=== PATIENT | male | born 1960 | race African-American/Black ===

== ENCOUNTER 2017-09-05 05:07 | Day surgery (SDC) | payer OTHER ==
[2017-09-04 16:29] VITALS: BMI 27.6
--- NOTE | 2017-09-05 13:00 | HP ---
History & Physical Update - History History: No Change - Physical Physical: No Change - Assessment Assessment: No Change - Plan Plan: No Change
[2017-09-05] MEDS ORDERED: LIDOCAINE 1%/EPI 1:100000 (20 ML MULTI DOSE VIAL) ONE (14:33)
[2017-09-05] MEDS ORDERED: BUPIVACAINE HCL/PF 0.5% (5MG/ML) 10 ML VIAL ONE (14:33)
[2017-09-05] MEDS ORDERED: PROPOFOL 20 ML ONE ×2 (14:44→14:45)
[2017-09-05] MEDS ORDERED: MIDAZOLAM HCL 2 MG/2 ML SINGLE DOSE VIAL ONE (14:44)
[2017-09-05] MEDS ORDERED: LIDOCAINE HCL/PF 2% SDV 5ML VIAL ONE (14:45)
[2017-09-05] MEDS ORDERED: LEVOFLOXACIN 500 MG IVPB 500 MG/100 ML BAG IVPB ONE (15:04)
[2017-09-05] MEDS ORDERED: LEVOFLOXACIN 500 MG PREMIX BAG IVPB ONE (15:05)
[2017-09-05] MEDS ORDERED: METRONIDAZOLE 500 MG PREMIXED 500 MG/100 ML MG IVPB ONE (15:06)
[2017-09-05] MEDS ORDERED: DEXAMETHASONE SOD PHOSPHATE 4 MG/1 ML VIAL ONE (15:08)
[2017-09-05] MEDS ORDERED: KETOROLAC TROMETHAMINE 30 MG/1 ML VIAL ONE (15:34)
[2017-09-05] MEDS ORDERED: ONDANSETRON 4 MG/2 ML VIAL IVPUSH PRN (15:52)
[2017-09-05] MEDS ORDERED: PROMETHAZINE HCL 25 MG/1 ML VIAL IVPUSH PRN (15:52)
[2017-09-05] MEDS ORDERED: LACTATED RINGERS SOLUTION 1,000 ML IV SCH (16:00)
--- NOTE | 2017-09-05 16:11 | OP ---
Operative Note - Note: Operative Date: 09/05/17 Pre-Operative Diagnosis: Anal fistula Operation: Proctosigmoidoscopy with anal dilation , anal fistulectomy, with placement of seton. First stage. Findings: Anal fistula at 3 o'Clock position , transsphincteric , through the external sphincter. Fistula excised upto the external sphincter , and a seton with no. 5 merselene placed around the external sphincter. Post-Operative Diagnosis: Other (High anal fistula at 3 O' Clock position , transsphincteric.) Surgeon: Alan Pablo Anesthesiologist/LEAD PRINCIPAL TECHNICAL ARCHITECT: William Claire Anesthesia: General Specimens Removed: Anal fistula. Estimated Blood Loss (mls): 10 Operative Report Dictated: Yes
[2017-09-05 17:31] VITALS: BP 148/86; PULSE 70
[2017-09-05 17:55] VITALS: TEMP 99.2
--- NOTE | 2017-09-06 15:21 | OP ---
DATE OF OPERATION: 09/05/2017 PREOPERATIVE DIAGNOSIS: Anal fistula for 6 months at the 3 o'clock position from the anal verge. POSTOPERATIVE DIAGNOSIS: Non-sphincteric anal fistula. OPERATIVE PROCEDURES: Proctosigmoidoscopy with anal dilation, anal fistulectomy with the placement of seton, first-stage procedure. SURGEON: Avila Pablo MD ANESTHESIA: General. ANESTHESIOLOGIST: William Claire MD OPERATIVE DESCRIPTION: This 57-year-old man had a large, recurrent perianal abscess with drainage anal fistula. The patient was brought in for proctosigmoidoscopy with anal dilation. The patient had a Fleet enema for the rectum. He was given antibiotics of Levaquin and Flagyl. He was placed in lithotomy position. The perineum and the anal canal were washed out with Betadine. A timeout was called. Proctosigmoidoscopy with anal dilation was performed with a rigid sigmoidoscope up to 20 cm. The findings were normal. A probe was then introduced through the external opening at 3 o'clock position about 4 cm from the anal verge. We entered the junction of the rectum and the anal canal in the 3 o'clock position. This was a direct tract. The fistula probe was placed within the anal tract and an elliptical incision was made around the external opening about 2 cm from the external opening. This was carried down towards the internal opening, excising the skin and subcutaneous fat and the anal tract. This was carried all the way down to the external sphincter where the tract seemed to go to the external sphincter. It was therefore then decided to place a seton around the external sphincter. A number 5 Mersilene suture was used. This was tied to the anal probe and passed out the external sphincter. The Mersilene suture was tied at the seton. Hemostasis was satisfactory. The excised tract, along with skin, and the superficial area was excised and sent to Pathology. Hemostasis was satisfactory. Next, 0.5% Marcaine was injected into the external sphincter and around the wound. The wound was packed with 2-inch iodoform gauze and a pack. Estimated blood loss was 5 to 10 mL. The patient tolerated the procedure well, was extubated, and sent to the recovery room in satisfactory and stable condition. Alex [id number]
--- NOTE | 2017-09-10 15:11 | PATH ---
Surgical Pathology Report Patient Name: MICHAEL INGRAM [facility]. Rec. #: [id number] /Age/Gender: 1960 (Age: 57) / M Account: [id number] Location: [facility] SUR[facility] Taken: 09/05/2017 Received: 09/09/2017 Reported: 09/10/2017 Physicians: Avila Pablo M.D. Specimen(s) Received ANAL FISTULLA Clinical History None given Final Diagnosis ANUS, FISTULA, EXCISION: SKIN AND UNDERLYING SOFT TISSUE WITH CHRONIC INFLAMMATION AND GIANT CELL REACTION CONSISTENT WITH FISTULA. Electronically Signed Kellen Pelayo M.D. Gross Description Received in formalin labeled "anal fistula," is a 3.5 x 2.2 cm brown, irregular, unoriented portion of skin excised to a depth of 1.8 cm. The epidermal surface is grossly unremarkable. Sectioning reveals focally hemorrhagic fibrous tissue. Burglar Alarm Inspector sections are submitted in 3 cassettes. /09/09/2017 saudi09/09/2017
== END 2017-09-05 17:31 | disposition home or self-care (01) ==
LOC: JASU-SURG 05:07
PROVIDERS: ATTEND Specialist
PROC: 0D7Q8ZZ Dilation of Anus, Via Natural or Artificial Opening Endoscopic (ICD-10-PCS; 2017-09-05)
PROC: 0DBQ0ZZ Excision of Anus, Open Approach (ICD-10-PCS; principal; 2017-09-05 14:00)
DX: K60.3 Anal fistula (principal)
CPT/HCPCS: 88304-TC; 94760

== ENCOUNTER 2017-10-03 09:49 | Day surgery (SDC) | payer OTHER ==
[2017-10-02 09:31] VITALS: BMI 27.6
--- NOTE | 2017-10-03 10:15 | HP ---
History & Physical Update - History History: No Change - Physical Physical: No Change - Assessment Assessment: No Change - Plan Plan: No Change (Anal fistulectomy done. Plan: Change os seton.)
[2017-10-03] MEDS ORDERED: KETOROLAC TROMETHAMINE 30 MG/1 ML VIAL ONE (10:42)
[2017-10-03] MEDS ORDERED: LIDOCAINE HCL/PF 2% SDV 5ML VIAL ONE (10:42)
[2017-10-03] MEDS ORDERED: DEXAMETHASONE SOD PHOSPHATE 4 MG/1 ML VIAL ONE (10:42)
[2017-10-03] MEDS ORDERED: PROPOFOL 20 ML ONE ×2 (10:43→12:19)
[2017-10-03] MEDS ORDERED: ONDANSETRON 4 MG/2 ML VIAL IVPUSH PRN (11:43)
[2017-10-03] MEDS ORDERED: oxyCODONE HCL 5 MG TABLET PO PRN (11:43)
[2017-10-03] MEDS ORDERED: LACTATED RINGERS SOLUTION 1,000 ML IV SCH (11:45)
[2017-10-03] MEDS ORDERED: BUPIVACAINE HCL/PF 0.5% (5MG/ML) 10 ML VIAL ONE (11:55)
[2017-10-03] MEDS ORDERED: LIDOCAINE HCL 1%, 10 MG/ML (20ML VIAL) ONE (11:55)
[2017-10-03] MEDS ORDERED: MIDAZOLAM HCL 2 MG/2 ML SINGLE DOSE VIAL ONE (12:00)
[2017-10-03] MEDS ORDERED: ceFAZolin SODIUM 1 GM VIAL IVPB ONE ×2 (12:10)
[2017-10-03] MEDS ORDERED: ceFAZolin SODIUM 1 GM VIAL ONE (12:17)
[2017-10-03] MEDS ORDERED: SODIUM CHLORIDE 0.9% P/F 10 ML VIAL IJ ONE (12:17)
[2017-10-03] MEDS ORDERED: BUPIVACAINE HCL/PF 0.5% (5MG/ML) 10 ML VIAL IJ ONE (12:34)
--- NOTE | 2017-10-03 13:09 | OP ---
Operative Note - Note: Operative Date: 10/03/17 Pre-Operative Diagnosis: Transsphincteric anal fistula, s/p first stage fistulectomy and placement of seton. Operation: Anoscopy, with examination under anesthesia. Removal of anal seton , and placement of a new seton. Findings: Transphicteric anal fistula. Post-Operative Diagnosis: Same as Pre-op Surgeon: Alan Pablo Anesthesia: General Specimens Removed: Seton Estimated Blood Loss (mls): 10 Operative Report Dictated: Yes
[2017-10-03 13:47] VITALS: TEMP 97.5
[2017-10-03 15:00] VITALS: BP 146/86; PULSE 82
--- NOTE | 2017-10-04 07:39 | OP ---
DATE OF OPERATION: 10/03/2017 PREOPERATIVE DIAGNOSIS: Transsphincteric anal fistula status post 1st stage fistulectomy with placement of seton. POSTOPERATIVE DIAGNOSIS: Transsphincteric anal fistula status post 1st stage fistulectomy with placement of seton with persistent transsphincter anal fistula. OPERATIVE PROCEDURE: 1. Anoscopy with examination under anesthesia. 2. Removal of anal seton. 3. Placement of a new anal seton. SURGEON: Avila Pablo MD ANESTHESIA: General anesthesia. OPERATIVE DESCRIPTION: This 57-year-old man who has had chronic transsphincter anal fistula was brought in for change of anal seton. The patient was placed in lithotomy position and given general anesthesia. The perineum was painted and draped. Anoscope was introduced into the rectum. The previously placed anal seton was then evaluated and pulled. The patient still had a significant amount of external sphincter around the seton. It was, therefore, decided not to slit or incise the external sphincter for possible incontinence. Another Mercilene No. 5 seton was introduced through the channel, brought out through the anal canal. The old seton was then removed after dividing the seton at the knot. The new seton was then tightly tied around the external sphincter. The rest of the examination was normal. The patient will be brought back in about 6 weeks for change of anal seton. Then 0.5% Marcaine was injected circumferentially around the external sphincter and the wound. Alex ESQUEDA/[id number] cc: Jason Collins MD [facility]
== END 2017-10-03 15:08 | disposition home or self-care (01) ==
LOC: JASU-SURG 09:49
PROVIDERS: ATTEND Specialist
PROC: 0DBQ0ZZ Excision of Anus, Open Approach (ICD-10-PCS; principal; 2017-10-03 09:30)
DX: K60.3 Anal fistula (principal)
CPT/HCPCS: 94760

== ENCOUNTER 2017-11-28 07:44 | Day surgery (SDC) | payer OTHER ==
[2017-11-27 09:25] VITALS: BMI 27.6
--- NOTE | 2017-11-28 08:59 | HP ---
History & Physical Update - History History: No Change - Physical Physical: No Change - Assessment Assessment: No Change - Plan Plan: No Change (Patient with high transsphincteric anal fistula, for secong stage fistulectomy.)
[2017-11-28] MEDS ORDERED: MIDAZOLAM HCL 2 MG/2 ML SINGLE DOSE VIAL ONE (09:35)
[2017-11-28] MEDS ORDERED: LIDOCAINE HCL/PF 2% SDV 5ML VIAL ONE (09:35)
[2017-11-28] MEDS ORDERED: PROPOFOL 20 ML ONE (09:35)
[2017-11-28] MEDS ORDERED: DEXAMETHASONE SOD PHOSPHATE 4 MG/1 ML VIAL ONE (10:02)
[2017-11-28] MEDS ORDERED: ONDANSETRON 4 MG/2 ML VIAL ONE (10:02)
--- NOTE | 2017-11-28 10:23 | OP ---
Operative Note - Note: Operative Date: 11/28/17 Pre-Operative Diagnosis: Anal fistula, s/p placement of seton. Operation: Anoscopy , with anal dilation, examination under anesthesia, anal fistulotomy (second stage),, removal of seton. Cauterisation of fistula tract with silver nitrate. Findings: Anal fistula , superficial , with the seton below the sphincter. tract opened with electocautery , about half a centimeter. Tract cauterised with silver nitrate. Surgeon: Alan Pablo Specimens Removed: None Estimated Blood Loss (mls): 2 Operative Report Dictated: Yes
[2017-11-28] MEDS ORDERED: ONDANSETRON 4 MG/2 ML VIAL IVPUSH PRN (10:31)
[2017-11-28] MEDS ORDERED: oxyCODONE HCL 5 MG TABLET PO PRN (10:31)
[2017-11-28] MEDS ORDERED: LACTATED RINGERS SOLUTION 1,000 ML IV SCH (10:45)
[2017-11-28 11:38] VITALS: TEMP 98
--- NOTE | 2017-11-28 11:56 | OP ---
DATE OF OPERATION: 11/28/2017 PREOPERATIVE DIAGNOSIS: Anal fistula, status post partial excision and placement of seton x2. POSTOPERATIVE DIAGNOSIS: Anal fistula, status post partial excision and placement of seton x2. OPERATIVE PROCEDURE: Anoscopy with anal dilation, examination under anesthesia , anal fistulotomy 2nd stage, removal of seton, and cauterization of the fistulous tract with silver nitrate. Anesthesia: General . SURGEON: Tika Esqueda MD ANESTHESIA: General anesthesia. OPERATIVE DESCRIPTION: This is a 57-year-old man with a trans-sphincteric anal fistula, was brought in for examination under anesthesia, possibly anal fistulotomy/ replacement of seton. Patient was anesthetized, placed in lithotomy position. The perineum and anal canal were painted with Betadine and draped. The previously placed seton was identified, and this was examined after the anal canal was dilated with 2 fingers, and anal speculum was placed. The tract was found to be very superficial, and the seton was pulled down, and it appeared to be well were below the sphincter. The tract was then opened. This was about 0.5 cm in length, and the granulation tissue was cauterized with silver nitrate. The patient appeared to have good anal sphincter tone,at the completion of procedure with good competence. The tract was cauterized with silver nitrate. Estimated blood loss was 2 mL. The seton was removed. Patient tolerated the procedure well and was sent to the recovery room in satisfactory and stable condition. Alex ESQUEDA/[id number] MTDD
[2017-11-28 13:35] VITALS: BP 145/74; PULSE 79
== END 2017-11-28 12:45 | disposition home or self-care (01) ==
LOC: JASU-SURG 07:44
PROVIDERS: ATTEND Specialist
PROC: 0DBQ0ZZ Excision of Anus, Open Approach (ICD-10-PCS; 2017-11-28)
PROC: 0DQQ0ZZ Repair Anus, Open Approach (ICD-10-PCS; principal; 2017-11-28 09:30)
DX: K60.3 Anal fistula (principal)
CPT/HCPCS: 94760